=== PATIENT | female | born 1960 | race Caucasian/White ===

== ENCOUNTER 2024-02-05 13:46 | Emergency (ER) | payer OTHER, SELFPAY ==
[2024-02-05 14:04] VITALS: BP 161/103
[2024-02-05 14:22] LABS: % Basophils 0.3 % (0-2); % Eosinophils 4.5 % (0-6); % Immature Granulocytes 0.2 % (0-0.5); % Lymphocytes 30.4 % (20.5-51.1); % Monocytes 9.2 % (1.7-9.3); % Neutrophils 55.4 % (42.2-75.2); Absolute Eosinophils 0.3 10^3/uL (0-0.7); Absolute Lymphocytes 1.9 10^3/uL (1.2-3.4); Absolute Monocytes 0.6 10^3/uL (0.1-0.6); Absolute Neutrophils 3.5 10^3/uL (1.4-6.5); Hematocrit 41.4 % (37.0-47.0); Hemoglobin 14.2 g/dL (12.0-16.0); Mean Corp Hgb Conc. 34.3 g/dL (33.0-37.0); Mean Corpuscular Hgb 32.4 pg (27.0-31.0); Mean Corpuscular Volume 94.5 fL (81.0-99.0); Mean Platelet Volume 9.6 fL (7.4-10.4); Nucleated Red Blood Cells % 0 %; Platelet Count 282 10^3/uL (130-400); Red Blood Cell Count 4.38 10^6/uL (4.20-5.40); Red Cell Dist. Width 12.8 % (11.5-14.5); White Blood Cell Count 6.3 10^3/uL (4.8-10.8)
[2024-02-05 14:26] LABS: Urine Albumin Negative (Neg - Trace); Urine Bilirubin Negative (Negative); Urine Character Clear (Clear); Urine Color Yellow; Urine Glucose Negative (Negative); Urine Ketone Negative (Negative); Urine Leukocyte 2+ (Negative); Urine Nitrite Negative (Negative); Urine Occult Blood Negative (Negative); Urine Specific Gravity 1.015 (<1.030); Urine Urobilinogen Negative (Neg - 1+)
[2024-02-05 14:35] LABS: ALT (SGPT) 27 U/L (0-35); AST (SGOT) 31 U/L (14-36); Albumin 5.2 g/dl (3.5-5.0); Alkaline Phosphatase 118 U/L (38-126); Blood Urea Nitrogen 22 mg/dl (7-17); Carbon Dioxide 32 mmol/L (22-30); Chloride 100 mmol/L (98-107); Glucose 90 mg/dl (70-99); Lipase 92 U/L (23-300); Potassium 4.1 mmol/L (3.5-5.1); Sodium 138 mmol/L (135-145); Total Bilirubin 0.6 mg/dl (0.2-1.3); Total Protein 7.6 g/dl (6.3-8.2); eGFR > 60.00
[2024-02-05 14:36] LABS: Urine Urothelial Cell 0-2 /LPF (FEW)
[2024-02-05 14:44] LABS: Urine Red Blood Cell None Seen /HPF (0-2)
--- NOTE | 2024-02-05 15:58 | ED.GENMED ---
History of Present Illness
General
Chief Complaint: Abdominal Pain
Time Seen by Provider: 02/05/24 15:30
Travel History
Have you had any contact with someone who has COVID-19?: No
Do you have any symptoms of coronavirus? Fever > 100 degrees, chills, cough, shortness of breath, sore throat, loss of taste or smell, muscle aches, or headache?: No
History of Present Illness
History of Present Illness:
63-year-old female with history of hypertension and hyperlipidemia presents to the emergency department for evaluation of right upper quadrant abdominal pain beginning this morning. She notes she had a colonoscopy yesterday however this was an
unremarkable scope and no biopsies were taken. This was not performed at [facility]. Pain is to the right flank and radiates toward the periumbilical region. She notes that she did have almonds last night but had nothing to eat this
morning prior to onset of pain. Prior abdominal surgery includes tubal ligation and abdominoplasty. Denies any fever, chills, sweats, nausea, vomiting, or diarrhea.
Past History
Past History
ED Past Medical History: HTN and Hypercholesterolemia
ED Past Surgical History: Gynecological (tubal) and Other (abdominoplasty, abd wall cystectomy)
Social History
Tobacco: Former smoker
Alcohol: Occasional
Personal:
Living: alone
Review of Systems
Review of Systems
Allergies reviewed?: Yes
All Other Systems: ROS reviewed and negative except as documented in HPI and ROS
Phy Exam
Physical Exam
Physical Exam:
GEN: Well appearing, NAD, WDWN
Eyes: PERRLA, EOMs intact, no scleral icterus
HENT: NCAT, oral mucosa moist
Lungs: CTAB, no wheezes, rales, rhonchi, normal chest wall excursion
Cardiac: RRR, no M/R/G, no peripheral edema. Radial pulses 2+ bilat
Abdomen: Soft, profound tenderness to the right upper quadrant, unable to assess for Olivier sign due to pain response initial palpation, no other reproducible tenderness
Neuro: AO x 3
MSK: No gross deformity or ecchymosis. No edema. No digital clubbing
Skin: No rashes, petechiae. Normal color, no pallor or jaundice.
Psych: Calm, cooperative, proper hygiene
Course
Orders/Labs/Results
Orders:
Orders
02/05/24 14:12
Complete Blood Count/With Diff Urgent
Comprehensive Metabolic Panel Urgent
Lipase Urgent
Urinalysis Reflex To Culture Urgent
Date Specimen was Collected: 02/05/24
Time Specimen was Collected: 14:07
Urine Microscopic Reflex Cult Urgent
Urine Culture Urgent
SANTOS Source: U
Specimen Description:
Date Specimen was Collected: 02/05/24
Time Specimen was Collected: 14:07
02/05/24 15:58
US Abdomen Complete/Upper Urgent
Comment:
Reason For Exam: RUQ pain
02/05/24 17:13
CT Abd/Pel (IV only)-DH only Urgent
Comment:
Reason For Exam: RUQ pain
Abnormal Lab Results
02/05/24
14:12
MCH 32.4 H pg
(27.0-31.0)
Carbon Dioxide 32 H mmol/L
(22-30)
BUN 22 H mg/dl
(7-17)
Albumin 5.2 H g/dl
(3.5-5.0)
Leukocyte Esterase Rfl 2+ A
(Negative)
02/05/24 14:12
02/05/24 14:12
Vital Signs
Initial and Last Documented VS:
Initial Vital Signs
Temp Pulse Resp BP Pulse Ox
98.6 F 86 18 161/103 99
02/05/24 14:04 02/05/24 14:04 02/05/24 14:04 02/05/24 14:04 02/05/24 14:04
Last Documented Vital Signs
Temp Pulse Resp BP Pulse Ox
98.6 F 79 18 156/96 99
02/05/24 14:04 02/05/24 18:36 02/05/24 14:04 02/05/24 18:36 02/05/24 14:04
MDM/Problems Addressed
MDM/Problems Addressed:
On initial evaluation the patient appeared quite comfortable but was noted to have profound right upper quadrant tenderness. Given that she did not appear peritoneal and had normal vital signs I found it less likely that this was clearance representative of
a colonic perforation or liver laceration and obtained an ultrasound, however after this returned completely negative we opted for a CT scan to definitively rule out a colonic perforation after recent colonoscopy. Both imaging modalities were
diffusely negative. Patient still had pain however remained clinically stable otherwise and was discharged in stable condition
*Critical Care Note
Total Time (30-74mins, 75-104mins- exclusive of procedures): Not Applicable
ED Attending Note
-
Portions of this chart may have been created with voice recognition software.� Occasional wrong word or��sound alike� substitutions may have occurred due to the inherent limitations of voice recognition software.
Discharge Plan
Departure
Patient Disposition: Home (Routine Discharge)
Date of Disposition: 02/05/24
Time of Disposition: 18:28
Patient with high blood pressure during this ER visit?: No
Discharge Problem:
Acute upper abdominal pain
Instructions: Abdominal Pain
Prescriptions:
No Action
acyclovir 200 MG capsule
200 mg PO BID
duloxetine [Cymbalta] 30 MG capsule,delayed release(DR/EC)
30 mg PO TID
Benazepril/Hydrochlorothiazide
20 mg PO DAILY
Patient Comments:
03/17 Patient asked to bring in accurate dose.
metolazone 2.5 MG tablet
2.5 mg PO BID@0800,1600 Qty: 0 0RF
hydrocodone-acetaminophen 1 TABLET tablet
2 tab PO Q4HPRN PRN (Reason: moderate to severe pain) Qty: 0 0RF
erythromycin 1 APPLIC ointment
1 applic ophthalmic (eye) QID Qty: 0 0RF
tobramycin [Tobrex] 1 APPLIC ointment
1 applic ophthalmic (eye) TID Qty: 0 0RF
duloxetine 30 MG capsule,delayed release(DR/EC)
30 mg PO TID Qty: 0 0RF
ondansetron HCl (PF) 4 MG/2 ML solution
4 mg IV Q6HPRN PRN (Reason: nausea/vomiting) Qty: 0 0RF
tramadol 50 MG tablet
50 mg PO Q6HPRN PRN (Reason: severe pain) Qty: 10 0RF
prednisone 20 mg tablet
40 mg PO DAILY Qty: 10 0RF
Referrals:
Kaden Lindo PA-C [Family Provider] -
Interventions
Interventions:
*Risk Screen - Suicide Last Done: 02/05/24 14:06
*General Assessment Last Done: 02/05/24 14:06
*Neglect/Abuse Screening Last Done: 02/05/24 14:06
*ED COVID-19 Vaccine History Last Done: 02/05/24 16:15
*Nursing Disposition Last Done: 02/05/24 18:36
FP-Qrhnwn-Ccvmuzlanh Assessment Last Done: 02/05/24 16:15
Discharge Date and Time
Discharge Date/Time: 02/05/24 18:37
[2024-02-05 17:57] VITALS: BP 156/96
[2024-02-05 18:36] VITALS: BP 156/96
== END 2024-02-05 18:37 | disposition home or self-care (01) ==
LOC: EMR 13:46
PROVIDERS: EMERGENCY PHYSICIAN Emergency Medicine; FAMILY PHYSICIAN Physician Assistant Medical
DX: R10.11 Right upper quadrant pain (principal); I10 Essential (primary) hypertension; E78.00 Pure hypercholesterolemia, unspecified
CPT/HCPCS: 99284; 74177; 76700; 80053; 81003; 81015; 83690; 85025; 87086; Q9967